=== PATIENT | male | born 1995 | race Caucasian/White ===

== ENCOUNTER 2019-01-02 15:14 | Emergency (ER) | payer SELFPAY ==
[~2019-01-02] VITALS: Ht 165.1 cm; Wt 62.7 kg
[2019-01-02 15:17] VITALS: Ht 165.1 cm; Wt 62.7 kg
[2019-01-02 17:19] VITALS: BP 134/66
== END 2019-01-02 17:19 | disposition home or self-care (01) ==
LOC: ED 15:14
DX: S06.0X9A Concussion with loss of consciousness of unspecified duration, initial encounter (principal); S50.01XA Contusion of right elbow, initial encounter; S20.211A Contusion of right front wall of thorax, initial encounter; F17.210 Nicotine dependence, cigarettes, uncomplicated; W01.0XXA Fall on same level from slipping, tripping and stumbling without subsequent striking against object, initial encounter; Y93.89 Activity, other specified; Y92.89 Other specified places as the place of occurrence of the external cause; Y99.8 Other external cause status